=== PATIENT | male | born 1975 | race Caucasian/White ===

== ENCOUNTER 2016-08-13 19:23 | Emergency (ER) | payer SELFPAY ==
[2016-08-13] MEDS ORDERED: TYLENOL PO ONE (19:30)
--- NOTE | 2016-08-13 20:20 | XRay Report ---
FINAL REPORT EXAM: XR FOOT 3 RT HISTORY: RT FOOT pain, send for report COMPARISONS: None. FINDINGS: Three nonweightbearing views right foot No bone lesion, periosteal reaction, or fracture. No deformity or gross malalignment. IMPRESSION: No fracture.
[2016-08-13 20:25] LABS: Basophils % (Auto) 0.8 % (0.0-1.8); Eosinophils % (Auto) 2.7 % (0.0-4.3); Hematocrit 41.5 % (35.5-45.6); Hemoglobin 13.9 gm/dl (11.8-15.2); Mean Corpuscular HGB Conc 34 % (32-34); Mean Corpuscular Hemoglobin 30 pg (28-32); Mean Corpuscular Volume 89 fl (84-94); Platelet Count 250 K/mm3 (140-440); Red Blood Count 4.64 M/mm3 (3.65-5.03); Red Cell Distribution Width 13.7 % (13.2-15.2); White Blood Count 7.6 K/mm3 (4.5-11.0)
[2016-08-13 20:34] LABS: Anion Gap 18 mmol/L; BUN/Creatinine Ratio 15.55; Blood Urea Nitrogen 14 mg/dL (9-20); Calcium 8.9 mg/dL (8.4-10.2); Carbon Dioxide 24 mmol/L (22-30); Chloride 102.8 mmol/L (98-107); Glucose 108 mg/dL (75-100); Potassium 3.8 mmol/L (3.6-5.0); Sodium 141 mmol/L (137-145)
[2016-08-13] MEDS ORDERED: DELTASONE PO ONE (20:49)
[2016-08-13] MEDS ORDERED: TORADOL IM ONE (20:49)
--- NOTE | 2016-08-13 20:49 | Emergency Department Report ---
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 denies: numbness, tingling Treatments Prior to Arrival: other (none) - Related Data Previous Rx's Medication Instructions Recorded Last Taken Type Indomethacin [Indocin] 25 mg PO Q8H #21 capsule 08/13/16 Unknown Rx predniSONE [Deltasone] 40 mg PO QDAY #5 tab 08/13/16 Unknown Rx Allergies Allergy/AdvReac Type Severity Reaction Status Date / Time No Known Allergies Allergy Verified 08/13/16 19:30 ED Review of Systems ROS: Stated complaint: RT LEG PAIN Other details as noted in HPI Constitutional: denies: chills, fever Eyes: denies: eye pain, eye discharge, vision change ENT: denies: ear pain, throat pain Respiratory: denies: cough, shortness of breath, wheezing Cardiovascular: denies: chest pain, palpitations Endocrine: no symptoms reported Gastrointestinal: denies: abdominal pain, nausea, diarrhea Genitourinary: denies: urgency, dysuria Musculoskeletal: denies: back pain, joint swelling, arthralgia Skin: denies: rash, lesions Neurological: denies: headache, weakness, paresthesias Psychiatric: denies: anxiety, depression Hematological/Lymphatic: denies: easy bleeding, easy bruising ED Past Medical Hx - Surgical History Past Surgical History?: No - Social History Smoking Status: Never Smoker Substance Use Type: None - Medications Home Medications: Home Medications Medication Instructions Recorded Confirmed Last Taken Type Indomethacin [Indocin] 25 mg PO Q8H #21 capsule 08/13/16 Unknown Rx predniSONE [Deltasone] 40 mg PO QDAY #5 tab 08/13/16 Unknown Rx ED Physical Exam - General Limitations: Language Barrier General appearance: alert, in no apparent distress - Head Head exam: Present: atraumatic, normocephalic - Eye Eye exam: Present: normal appearance - ENT ENT exam: Present: normal exam - Neck Neck exam: Present: normal inspection - Respiratory Respiratory exam: Present: normal lung sounds bilaterally. Absent: respiratory distress - Cardiovascular Cardiovascular Exam: Present: regular rate, normal rhythm. Absent: systolic murmur, diastolic murmur, rubs, gallop - GI/Abdominal GI/Abdominal exam: Present: soft, normal bowel sounds - Rectal Rectal exam: Present: deferred - Extremities Exam Extremities exam: Present: normal inspection - Expanded Lower Extremity Exam Right Hip exam: Present: full ROM Upper Leg exam: Present: normal inspection, full ROM Knee exam: Present: normal inspection, full ROM Lower Leg exam: Present: normal inspection, full ROM Ankle exam: Present: normal inspection, full ROM Foot/Toe exam: Present: tenderness, swelling, erythema (right great toe mild erythema warm to touch rom intact, ppepb+2, ). Absent: abrasion, laceration, ecchymosis, deformity, crepidus, dislocation, amputation, puncture wound, foreign body, calcaneal tenderness, tenderness at base of 5th metatarsal, nail avulsion, subungual hematoma Neuro vascular tendon exam: Present: no vascular compromise. Absent: pulse deficit, abnormal cap refill, motor deficit, sensory deficit, tendon deficit, extremity cold to touch, abnormal 2-point discrimination, decreased fine/light touch, foot drop, peroneal nerve deficit, significant pain with passive ROM of distal joint Gait: Positive: observed and normal - Back Exam Back exam: Present: normal inspection - Neurological Exam Neurological exam: Present: alert, oriented X3 - Psychiatric Psychiatric exam: Present: normal affect, normal mood - Skin Skin exam: Present: warm, dry, intact, rash, erythema. Absent: cyanosis, diaphoretic, urticaria, vesicles, petechiae, pallor, abrasion, ecchymosis ED Course Vital Signs 08/13/16 19:30 Temperature 100.3 F H Pulse Rate 72 Respiratory 18 Rate Blood Pressure 123/80 [Right] O2 Sat by Pulse 96 Oximetry ED Lower Extremity MDM - Lab Data Result diagrams: 08/13/16 19:58 08/13/16 19:58 Laboratory Tests 08/13/16 08/13/16 08/13/16 19:58 19:58 19:58 WBC 7.6 RBC 4.64 Hgb 13.9 Hct 41.5 MCV 89 MCH 30 MCHC 34 RDW 13.7 Plt Count 250 Lymph % (Auto) 24.3 [place] % (Auto) 7.5 H Eos % (Auto) 2.7 Baso % (Auto) 0.8 Lymph # 1.9 [place] # 0.6 Eos # 0.2 Baso # 0.1 Seg Neutrophils % 64.7 Seg Neutrophils # 4.9 ESR 22 VBG pH 7.362 Sodium Potassium Chloride Carbon Dioxide Anion Gap BUN Creatinine Estimated GFR BUN/Creatinine Ratio Glucose Lactic Acid 1.00 Calcium C-Reactive Protein 08/13/16 19:58 WBC RBC Hgb Hct MCV MCH MCHC RDW Plt Count Lymph % (Auto) [place] % (Auto) Eos % (Auto) Baso % (Auto) Lymph # [place] # Eos # Baso # Seg Neutrophils % Seg Neutrophils # ESR VBG pH Sodium 141 Potassium 3.8 Chloride 102.8 Carbon Dioxide 24 Anion Gap 18 BUN 14 Creatinine 0.9 Estimated GFR > 60 BUN/Creatinine Ratio 15.55 Glucose 108 H Lactic Acid Calcium 8.9 C-Reactive Protein 1.30 - Radiology Data Radiology results: report reviewed no fracture no soft tissue abnormalities , no osteomyelitis - Medical Decision Making pt is a 41 y /o czech speaking male who presents for right great toe pain and swelling x 4 days pt denies fall injury or trauma, pt denies fever or chills, no nausea or vomiting, pt remain ambulatory gait remains steady , exam: right great toe joint with mild erythema and swelling warm to touch no wound no cellulitis, no ingrown toe nail, pain with flexion extension and palpation , symptoms consistent with gout , labs noted glucose 250, lactic acid: 1.0 wbc: 7 , pain is reported at 5/10 reduced to 3 /10 with toradol and prednisone 60 mg po temp to 98.2 f oral , plan: dc with prednisone x 5 days, indomethicin 25 mg po tid x 7 days , follow with [facility] next week Pt verbalized agreement and understanding of same. Critical care attestation.: If time is entered above; I have spent that time in minutes in the direct care of this critically ill patient, excluding procedure time. ED Disposition Clinical Impression: Idiopathic gout involving toe of right foot Qualifiers: Chronicity: acute Qualified Code(s): M10.071 - Idiopathic gout, right ankle and foot Disposition: - TO HOME OR SELFCARE Is pt being admited?: No Does the pt Need Aspirin: No Condition: Good Instructions: Acute Gouty Arthritis (ED) Additional Instructions: follow up with [facility] [phone] next week Prescriptions: Indomethacin [Indocin] 25 mg PO Q8H #21 capsule predniSONE [Deltasone] 40 mg PO QDAY #5 tab Referrals: PRIMARY CARE, [Primary Care Provider] - 3-5 Days Forms: Work/School Release Form(ED) Time of Disposition: 21:15
[2016-08-13] MEDS ORDERED: TORADOL ONE (20:52)
[2016-08-13 20:58] LABS: Erythrocyte Sedimentation Rate 22 mm/Hr (0-20)
[2016-08-13 22:07] VITALS: BP 121/75
== END 2016-08-13 21:20 | disposition home or self-care (01) ==
LOC: ED 19:23
DX: M10.071 Idiopathic gout, right ankle and foot (principal)
CPT/HCPCS: 36415; 73630; 80048; 82140; 82805; 85025; 85652; 86140; 96372; 99283; J1885; J7512